=== PATIENT | female | born 1935 | race Caucasian/White ===

== ENCOUNTER 2017-12-19 14:47 | Emergency (ER) | payer MEDICARE, BC ==
[~2017-12-19] VITALS: Ht 165.1 cm; Wt 68.0 kg
[2017-12-19] MEDS ORDERED: PRAV20TA2 PO (15:04)
[2017-12-19] MEDS ORDERED: ALBU8.5H8 PO (15:04)
[2017-12-19] MEDS ORDERED: OMEP20TA62 PO (15:04)
[2017-12-19] MEDS ORDERED: GLIP1TAB3 PO (15:04)
[2017-12-19] MEDS ORDERED: FLUT9.9S NAS (15:04)
[2017-12-19] MEDS ORDERED: FLUT1DIS3 INH (15:04)
[2017-12-19] MEDS ORDERED: FURO-93 PO (15:04)
[2017-12-19 15:53] VITALS: BP 137/69
[2017-12-19] MEDS ORDERED: BACITRACIN ZINC OINT 500U/GM, 0.9 GM ONE (16:46)
== END 2017-12-19 16:57 | disposition home or self-care (01) ==
LOC: ED 16:51
DX: S22.32XA Fracture of one rib, left side, initial encounter for closed fracture (principal); S42.032A Displaced fracture of lateral end of left clavicle, initial encounter for closed fracture; S09.90XA Unspecified injury of head, initial encounter; E11.9 Type 2 diabetes mellitus without complications; W10.9XXA Fall (on) (from) unspecified stairs and steps, initial encounter; Y93.89 Activity, other specified; Y99.8 Other external cause status; Y92.009 Unspecified place in unspecified non-institutional (private) residence as the place of occurrence of the external cause
CPT/HCPCS: 70450; 93005; 99284